=== PATIENT | female | born 1990 | race Caucasian/White ===

== ENCOUNTER 2016-05-29 19:11 | Emergency (ER) | payer BC ==
[2016-05-29 20:28] LABS: BASO # 0.1 K/mm3 (0.0-0.2); BASO % 0.5 % (0.2-1.0); EOS # 0.3 (0.0-0.5); EOS % 1.9 % (0.9-2.9); HEMATOCRIT 40.7 % (37.0-47.0); HEMOGLOBIN 12.8 gm/l (12.0-16.0); IMM NEUT # 0.1 K/mm3 (0-0.2); IMM NEUT% 0.5 % (0-1); LYMPH # 3.1 (1.0-4.8); LYMPH % 23.5 % (15-45); MEAN CELL VOLUME 85.9 fl (81.0-99.0); MEAN CORPUSCULAR HGB CONC 31.4 g/dl (33.0-37.0); MEAN PLATELET VOLUME 10.5 fl (7.4-10.4); MONO # 0.7 (0.0-0.8); NEUT % 68.6 % (43-75); PLATELET COUNT 299 K/mm3 (130-400); RED CELL DISTRIBUTION WIDTH 13.3 % (11.5-14.5)
[2016-05-29] MEDS: IOPAMIDOL 370 (76%) 100 ML VIAL IV ONE (20:57)
[2016-05-29 21:04] LABS: ALB/GLOB RATIO 1.4 (>1.0); ALBUMIN 4.2 gm/dL (3.5-5.7); CALCIUM 8.8 mg/dL (8.6-10.3)
--- NOTE | 2016-05-29 21:27 | CT ---
FACIAL BONES W/ CON: 05/29/2016 8:06 PM CLINICAL HISTORY: Left proptosis. No known injury. Technique: 2.5 mm thick contiguous axial scans of face/paranasal sinuses were acquired in axial plane. Coronal reformats were also generated and reviewed. Imaging device: [employer] Aquilion [address] scanner 80 cc of Isovue-300 is used in this exam. Comparison: None. 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 This mass measures approximately 2.1 x 2.3 x 3 cm in maximal AP, transverse and craniocaudal extent. This does not appear to involve the optic nerve, throughout much of its course. There may be involvement of the optic nerve as it reaches the posterior aspect of the globe. The lesion appears to engulf the medial aspect of the lateral rectus and inferior rectus. The lesion is hypodense with fairly smooth borders. This does abut the posterior aspect of the globe. There may be some enhancement along the inferior lateral aspect. The remainder of the intra and extraconal fat is normal. Right orbit and periorbital region is normal. Visualized brain is normal. No erosion of the adjacent bone. Dental amalgam causes streak artifact limiting assessment. Rightward nasal septal deviation. Scattered mucous retention cysts and minimal mucosal thickening within the maxillary sinuses. No definite fracture is noted in facial bones. Otherwise visualized paranasal sinuses are well-aerated. No evidence of abnormal air-fluid levels. Bilateral mastoids also appear unremarkable. Visualized upper aerodigestive tract appears normal. Mandible and bilateral temporomandibular joints appear normal. 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 The possible involvement near the insertion of the nerve onto the globe is thought to be incidental. Differential considerations would include schwannoma, sarcoidosis, time chest are disease, metastatic disease, primary or metastatic melanoma. While vascular malformations are possible, this is thought to be less likely given the enhancement pattern. Lymphoma, while less likely could also be considered. MRI with and without contrast could be helpful in further assessment. Ophthalmology consult is warranted for further management and treatment. Other findings as above. Findings were called to Dr. Alfredo at approximately 2119 hours on 05/29/2016. He states patient has some mild ecchymosis along the inferior eyelid. Patient had significant worsening of the proptosis within the last 24 hours. This could indicate potential vascular cause of the lesion though mass lesion with hemorrhage could also give this appearance.
== END 2016-05-29 22:31 | disposition home or self-care (01) ==
LOC: ED 19:11
DX: R22.0 Localized swelling, mass and lump, head (principal); H05.20 Unspecified exophthalmos; H53.002 Unspecified amblyopia, left eye